=== PATIENT | female | born 1935 | race Caucasian/White ===

== ENCOUNTER 2016-08-25 13:43 | Outpatient (CLI) | payer MEDICARE, BC ==
[2016-08-25 14:02] LABS: #Eosinphils 0.2 thou/uL (0.0-0.7); #Monocytes 0.5 thou/uL (0.11-0.59); #Neutrophils 4.6 thou/uL (1.40-6.50); %Basophils 0.6 % (0.0-1.0); %Eosinophils 2.6 % (0.0-10.0); %Monocytes 7.2 % (0.0-10.0); Hematocrit 45.6 % (36.0-47.0); Mean Platelet Volume 5.3 fL (7.4-10.4); Red Blood Cell (RBC) Count 4.76 mill/uL (4.20-5.40); White Blood Cell (WBC) Count 7.4 thou/uL (4.8-10.8)
[2016-08-25 14:15] LABS: ALT (SGPT) 16 U/L (0-55); AST (SGOT) 17 U/L (5-34); Alkaline Phosphatase 90 U/L (40-150); Anion Gap 15 mmol/L (10-20); BUN (Urea Nitrogen) 20 mg/dL (9.8-20.1); Bilirubin, Total 0.8 mg/dL (0.2-1.2); Calc. Creatinine Clearance 0 mL/min (70-130); Calcium 9.5 mg/dL (7.8-10.44); Carbon Dioxide 30 mmol/L (23-31); Chloride 105 mmol/L (98-107); Estimated GFR-MDRD 73; Globulin 2.5 g/dL (2.4-3.5); LDL Cholesterol, Calculated 111 mg/dL; Protein, Total 6.6 g/dL (5.8-8.1)
== END 2016-08-25 13:44 | disposition home or self-care (01) ==
LOC: HPCALD 13:43
PROVIDERS: ATTEND Family Medicine
DX: E78.2 Mixed hyperlipidemia (principal); I10 Essential (primary) hypertension; M19.90 Unspecified osteoarthritis, unspecified site
CPT/HCPCS: 80053; 80061; 82306; 84443; 85025

== ENCOUNTER 2016-11-11 11:18 | Outpatient (CLI) | payer MEDICARE, BC | END 2016-11-11 11:19 | disposition home or self-care (01) | LOC: HPCALD 11:18 | PROVIDERS: ATTEND Family Medicine | DX: E55.9 Vitamin D deficiency, unspecified (principal) | CPT/HCPCS: 36415; 82306 ==

== ENCOUNTER 2017-02-16 09:27 | Outpatient (CLI) | payer MEDICARE, BC | END 2017-02-16 09:28 | disposition home or self-care (01) | LOC: HPCALD 09:27 | PROVIDERS: ATTEND Family Medicine | DX: E55.9 Vitamin D deficiency, unspecified (principal) | CPT/HCPCS: 36415; 82306 ==

== ENCOUNTER 2017-05-03 10:13 | Outpatient (CLI) | payer MEDICARE, BC | END 2017-05-03 10:14 | disposition home or self-care (01) | LOC: HPCALD 10:13 | PROVIDERS: ATTEND Family Medicine | DX: E55.9 Vitamin D deficiency, unspecified (principal) | CPT/HCPCS: 36415; 82306 ==

== ENCOUNTER 2018-02-12 16:28 | Outpatient (CLI) | payer MEDICARE, BC ==
--- NOTE | 2018-02-12 21:35 | RAD ---
CHEST TWO VIEWS: 02/12/2018 COMPARISON: No prior films are available for comparison. FINDINGS: The heart is upper normal in size but certainly not significantly enlarged, given age and body habitu s. There are no congestive changes or pleural effusions. Calcification is seen in the aortic arch. The right hemidiaphragm is significantly elevated, though it would not surprise me if this were the patient's normal state. IMPRESSION: 1. No acute thoracic findings. 2. 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 3. Elevated right hemidiaphragm, likely chronic. POS: HOME
== END 2018-02-12 16:29 | disposition home or self-care (01) ==
LOC: BURRAD 16:28
PROVIDERS: ATTEND Family Medicine
DX: Z01.818 Encounter for other preprocedural examination (principal); I70.0 Atherosclerosis of aorta; J98.6 Disorders of diaphragm
CPT/HCPCS: 71046; 93005; 93010

== ENCOUNTER 2019-07-05 10:38 | Outpatient (CLI) | payer MEDICARE, BC ==
--- NOTE | 2019-07-05 14:57 | RAD ---
ABDOMEN: Date: 07/05/19 Supine and erect films show no free air beneath the diaphragm. The right hemidiaphragm is prominently elevated, but it was on a 02/12/18 chest film. There is probably some basilar atelectasis on the rig ht as a result. The abdominal gas pattern is nonspecific with gas seen in large and small bowel. No loops are signifi cantly distended to suggest obstruction. While fecal material is seen in the colon, I am not impresse d that it is truly excessive. No calcifications of concern seen. Scoliosis noted. IMPRESSION: Nonspecific abdominal findings. Elevated right hemidiaphragm, chronic. POS: HOME
[2019-07-05 16:50] LABS: Anion Gap 12 mmol/L (10-20); BUN (Urea Nitrogen) 19 mg/dL (9.8-20.1); Calc. Creatinine Clearance 0 mL/min (70-130); Calcium 9.8 mg/dL (7.8-10.44); Carbon Dioxide 33 mmol/L (23-31); Chloride 102 mmol/L (98-107); Estimated GFR-MDRD 52; Glucose 101 mg/dL (83-110); Potassium 4.4 mmol/L (3.5-5.1); Sodium 143 mmol/L (136-145)
== END 2019-07-05 10:39 | disposition home or self-care (01) ==
LOC: BURRAD 10:38
PROVIDERS: ATTEND Family Medicine
DX: K59.09 Other constipation (principal); I89.0 Lymphedema, not elsewhere classified; J98.6 Disorders of diaphragm
CPT/HCPCS: 36415; 74019; 80048; 83880; 84443